=== PATIENT | female | born 1965 | race Asian ===

== ENCOUNTER 2019-07-24 21:47 | Emergency (ER) | payer OTHER ==
[~2019-07-24] VITALS: Ht 157.5 cm; Wt 51.7 kg
[2019-07-24 21:59] VITALS: Ht 157.5 cm; Wt 51.7 kg
[2019-07-24 23:45] LABS: BASOPHIL % 0.5 % (0-2); PLATELET COUNT 251 x10^3mcL (130-400)
[2019-07-24 23:50] LABS: CALCIUM 9.7 mg/dL (8.5-10.1); CARBON DIOXIDE 27.1 mmol/L (21-32); CHLORIDE SERUM 102 mmol/L (98-107); CREATININE SERUM 0.6 mg/dL (0.6-1.0); GFR1 > 60 mL/min; GLUCOSE SERUM 113 mg/dL (74-106); POTASSIUM SERUM 3.7 mmol/L (3.5-5.1); SODIUM SERUM 142 mmol/L (136-145)
[2019-07-24 23:54] LABS: ALKALINE PHOSPHATASE 102 U/L (46-116); ALT/SGPT 21 U/L (14-59); AST/SGOT 21 U/L (15-37); BILIRUBIN TOTAL 0.7 mg/dL (0.20-1.00)
[2019-07-24 23:56] LABS: TOTAL PROTEIN, SERUM 8.5 g/dL (6.4-8.2)
[2019-07-25 02:05] VITALS: BP 136/91
== END 2019-07-25 02:00 | disposition home or self-care (01) ==
LOC: ED 21:47
PROVIDERS: Emergency Medicine
DX: J02.9 Acute pharyngitis, unspecified (principal); R07.89 Other chest pain; M54.2 Cervicalgia
CPT/HCPCS: 36415; 85378; Q0092